=== PATIENT | male | born 1995 | race African-American/Black ===

== ENCOUNTER 2023-01-18 17:50 | Emergency (ER) | payer OTHER ==
[~2023-01-18] VITALS: Ht 172.7 cm; Wt 106.8 kg
[2023-01-18 17:50] VITALS: BP 118/84; PULSE 68; RESP 16; TEMP 98.3
[2023-01-18] MEDS ORDERED: IBUP-1554 PO (19:30)
[2023-01-18] MEDS ORDERED: HYDR-4072 PO (19:30)
== END 2023-01-18 19:55 | disposition home or self-care (01) ==
LOC: EMS 17:53
DX: S02.5XXA Fracture of tooth (traumatic), initial encounter for closed fracture (principal); X58.XXXA Exposure to other specified factors, initial encounter; Y93.89 Activity, other specified; Y92.89 Other specified places as the place of occurrence of the external cause; Y99.8 Other external cause status
CPT/HCPCS: 99283; Z7502

== ENCOUNTER 2023-02-23 15:19 | Emergency (ER) | payer OTHER ==
[~2023-02-23] VITALS: Ht 172.7 cm; Wt 104.5 kg
[~2023-02-23 15:19] MED LIST: HYDR-4072 PO; IBUP-1554 PO
[2023-02-23 15:21] VITALS: BP 120/56; PULSE 68; RESP 16; TEMP 98
[2023-02-23] MEDS ORDERED: KETOROLAC TROMETHAMINE 30 MG/ML VIAL IM ONE (16:30)
[2023-02-23] MEDS ORDERED: HYDROCODONE/ACETAMINOPHEN 5-325 MG TABLET PO ONE (16:30)
[2023-02-23] MEDS ORDERED: TRAM-559 PO (17:55)
[2023-02-23] MEDS ORDERED: AMOX250C4 PO (17:55)
== END 2023-02-23 18:31 | disposition home or self-care (01) ==
LOC: EMS 15:52
DX: K08.89 Other specified disorders of teeth and supporting structures (principal)
CPT/HCPCS: 99283; 96372; J1885